=== PATIENT | male | born 1955 | race Caucasian/White ===

== ENCOUNTER 2018-12-26 19:32 | Emergency (ER) | payer OTHER ==
[~2018-12-26] VITALS: Ht 170.2 cm; Wt 78.5 kg
[2018-12-26 19:43] VITALS: BP 141/63; Ht 170.2 cm; Wt 78.5 kg
== END 2018-12-26 21:03 | disposition left against medical advice (07) ==
LOC: ED 19:32
DX: Z53.21 Procedure and treatment not carried out due to patient leaving prior to being seen by health care provider (principal)